=== PATIENT | male | born 1960 | race African-American/Black ===

== ENCOUNTER 2018-08-18 19:57 | Emergency (ER) | payer MEDICARE, MEDICAID ==
[~2018-08-18] VITALS: Ht 180.3 cm; Wt 77.3 kg
[2018-08-18 20:02] VITALS: Ht 180.3 cm; Wt 77.3 kg
[2018-08-18] MEDS ORDERED: ROBAXIN500 MG PO (20:41)
[2018-08-18] MEDS ORDERED: MEDROL DOSE PACK4 MG PO (20:41)
[2018-08-18 21:10] VITALS: BP 105/56
== END 2018-08-18 21:10 | disposition home or self-care (01) ==
LOC: D.ER 19:57
DX: M54.2 Cervicalgia (principal)